=== PATIENT | male | born 1975 | race Hispanic/Latino ===

== ENCOUNTER 2023-09-29 15:36 | Emergency (ER) | payer SELFPAY ==
[2023-09-29 16:04] LABS: Appearance Urine UA CLEAR; Bilirubin Urine UA NEGATIVE (NEGATIVE); Color Urine UA YELLOW; Glucose Urine UA NEGATIVE (Negative); Ketones Urine UA NEGATIVE (NEGATIVE); Leukocyte Esterase Urine UA NEGATIVE (NEGATIVE); Nitrite Urine UA NEGATIVE (Negative); Occult Blood Urine UA NEGATIVE (Negative); Protein Urine UA NEGATIVE (Negative); Specific Gravity Urine UA 1.025 (1.000-1.035); Urobilinogen Urine UA 0.2 E.U./dL (0.2); pH Urine UA 6.5 (4.5-8.0)
[2023-09-29 16:06] VITALS: BP 163/95; PULSE 75; RESP 18; TEMP 36.8; O2SAT 99; BMI 27.8
[2023-09-29 16:15] LABS: Bacteria Urine None Seen; RBC Urine None Seen (0-5/HPF); WBC Urine None Seen (0-5/HPF)
[2023-09-29 16:16] LABS: Squamous Epithelial Cell Urine None Seen (0-5/HPF)
[2023-09-29 16:19] LABS: Culture Indicated Urine Cult Not Indicated
--- NOTE | 2023-09-29 17:59 | ED.SKABFB ---
HPI - Skin/Abscess/Foreign Bdy <Danelle Ca PA-C - Last Filed: 09/29/23 19:40> General Chief complaint: Skin/Abscess/Foreign Body Stated complaint: Pain in genitalia and groin Time Seen by Provider: 09/29/23 17:50 Source: patient Mode of arrival: Ambulatory Limitations: no limitations History of Present Illness HPI narrative: Patient is a 48-year-old male presenting for evaluation of a hemorrhoid in his rectal area which he noticed the last 3 weeks. He states that this occurred after a bout of diarrhea occurring 3 weeks ago which has since resolved.. He states that he is noticed some bright red blood on toilet paper when wiping, but nothing that fills the bowl. He states that it is uncomfortable and somewhat itchy. Reports he had this about 10 years ago and it resolved with treatment, but he can not remember with the treatment was. He is so far been attempting to use [id number] treatments. He denies any abdominal pain no fever or nausea or vomiting. Related Data Home Medications Medication Instructions Recorded Confirmed ibuprofen 200 mg tablet (Advil) 400 mg PO BID ##0 11/27/11 Previous Rx's Medication Instructions Recorded lidocaine 3 %-hydrocortisone 0.5 % 1 applic topical BID 1 week #28.3 09/29/23 topical cream grams Allergies Allergy/AdvReac Type Severity Reaction Status Date / Time Penicillins Allergy Hives Verified 09/29/23 16:14 Review of Systems <Danelle Ca PA-C - Last Filed: 09/29/23 19:40> Review of Systems Narrative: See HPI Patient History <Danelle Ca PA-C - Last Filed: 09/29/23 19:40> Social History Smoking Status: Never smoker Smoking Status: Never smoker alcohol intake frequency: a few times a month Substance Use Type: does not use Exam <Danelle Ca PA-C - Last Filed: 09/29/23 19:40> Initial Vital Signs Initial Vital Signs: Vital Signs Temperature 98.3 F 09/29/23 16:06 Pulse Rate 75 09/29/23 16:06 Respiratory Rate 18 09/29/23 16:06 Blood Pressure 163/95 H 09/29/23 16:06 Pulse Oximetry 99 09/29/23 16:06 Oxygen Delivery Method Room Air 09/29/23 16:06 GENERAL: 48 year old patient appears stated age. Well-developed patient, in no acute distress. HEAD: Atraumatic. Normocephalic. EYES: Pupils equal round No scleral icterus. No injection or drainage. NECK: Trachea midline, supple RESPIRATORY: Speaking comfortably normal tone of voice without any increased work of breathing. 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 NEURO: AOx3. SKIN: No rash or erythema of visible areas <DO Sanjeev Isidro Last Filed: 10/01/23 18:00> Initial Vital Signs Initial Vital Signs: Vital Signs Temperature 98.3 F 09/29/23 16:06 Pulse Rate 75 09/29/23 16:06 Respiratory Rate 18 09/29/23 16:06 Blood Pressure 163/95 H 09/29/23 16:06 Pulse Oximetry 99 09/29/23 16:06 Oxygen Delivery Method Room Air 09/29/23 16:06 Course <Danelle Ca PA-C - Last Filed: 09/29/23 19:40> Orders Ordered: ED Orders 09/29/23 15:56 Urinalysis and Microscopic Stat Vital Signs Vital signs: Vital Signs - 8 hr 09/29/23 16:06 Temperature 98.3 F Pulse Rate 75 Respiratory Rate 18 Blood Pressure 163/95 H Pulse Oximetry 99 Oxygen Delivery Method Room Air <DO Sanjeev Isidro Last Filed: 10/01/23 18:00> Orders Ordered: ED Orders 09/29/23 15:56 Urinalysis and Microscopic Stat Vital Signs Vital signs: Vital Signs - 8 hr 09/29/23 16:06 Temperature 98.3 F Pulse Rate 75 Respiratory Rate 18 Blood Pressure 163/95 H Pulse Oximetry 99 Oxygen Delivery Method Room Air MDM - Skin/Abscess/Foreign Bdy <FAY Castillo Last Filed: 09/29/23 19:40> Lab Data Labs: Lab Results 09/29/23 Range/Units 15:56 Urine Color Yellow Urine Appearance Clear Urine pH 6.5 (4.5-8.0) Ur Specific [place] 1.025 (1.000-1.035) Urine Protein Negative (Negative) Urine Glucose (UA) Negative (Negative) g/dL Urine Ketones Negative (NEGATIVE) Urine Occult Blood Negative (Negative) Urine Nitrate Negative (Negative) Urine Bilirubin Negative (NEGATIVE) Urine Urobilinogen 0.2 (0.2) E.U./dL Ur Leukocyte Esterase Negative (NEGATIVE) Urine RBC None seen (0-5/HPF) Urine WBC None seen (0-5/HPF) Ur Squamous Epith Cells None seen (0-5/HPF) Urine Bacteria None seen (None) Ur Culture Indicated? Cult not indicated MDM Narrative Medical decision making narrative: Patient's symptoms are consistent with hemorrhoid. Hemorrhoid visualized on exam. Patient's description is consistent with an external hemorrhoid, he is no complaint of abdominal pain. Recommend treatment I discussed in discharge instructions with Sitz bath, topical lidocaine hydrocortisone treatment for 1 week as well as steps to make bowel movements easier such as stool softeners and increase fiber in diet. Recommend follow up the primary care provider if symptoms are not improving despite conservative management. Patient is agreeable with plan of care and verbalizes understanding. Findings and discharge diagnosis discussed with patient/family followed by verbalization of understanding Return precautions discussed with patient/family whom verbalize understanding of diagnosis and plan <Parviz Dasilva, DO - Last Filed: 10/01/23 18:00> Lab Data Labs: Lab Results 09/29/23 Range/Units 15:56 Urine Color Yellow Urine Appearance Clear Urine pH 6.5 (4.5-8.0) Ur Specific [place] 1.025 (1.000-1.035) Urine Protein Negative (Negative) Urine Glucose (UA) Negative (Negative) g/dL Urine Ketones Negative (NEGATIVE) Urine Occult Blood Negative (Negative) Urine Nitrate Negative (Negative) Urine Bilirubin Negative (NEGATIVE) Urine Urobilinogen 0.2 (0.2) E.U./dL Ur Leukocyte Esterase Negative (NEGATIVE) Urine RBC None seen (0-5/HPF) Urine WBC None seen (0-5/HPF) Ur Squamous Epith Cells None seen (0-5/HPF) Urine Bacteria None seen (None) Ur Culture Indicated? Cult not indicated Discharge Plan Departure Patient Disposition: Home Clinical Impression: Hemorrhoid Qualifiers: Hemorrhoid type: unspecified Qualified Code(s): K64.9 - Unspecified hemorrhoids Activity Restrictions/Additional Instructions: Thank you for coming in today for your care. You were diagnosed with a hemorrhoid. I recommend treatment to soften stools with use of a stool softener such as docusate sodium, increase water and increase fiber in diet. To help avoid worsening of hemorrhoid today, recommend avoiding sitting on the toilet for long periods of time. I suggest use of a Sitz bath 2 or 3 times a day with warm water. This can help reduce inflammation. Additionally, you may use lidocaine hydrocortisone cream for up to 1 week. These can help shrink the hemorrhoid. If it is still present after 6 weeks despite conservative management, recommend follow up with primary care provider or specialist to discuss removal. Prescriptions: New lidocaine HCl-hydrocortison ac 3-0.5 % cream 1 applic topical BID 7 Days Qty: 28.3 0RF No Action ibuprofen [Advil] 200 MG tablet 400 mg PO BID Qty: 0 Referrals: Parviz Guidry MD [Primary Care Provider] - Stand Alone Forms: Patient Portal/API ED Sign-out <Parviz Dasilva DO - Last Filed: 10/01/23 18:00> Cosign ED Attending Cosignature Attestation: Dr Dasilva Co-Sign Statement: I was available for consultation during this patient's emergency department visit. This chart is signed by myself for administrative purposes only. I did not have direct contact with this patient during this visit. They were seen independently by the APC.
== END 2023-09-29 18:09 | disposition home or self-care (01) ==
PROVIDERS: Emergency Provider Physician Assistant; Family Provider Specialist; PCP Specialist
DX: K64.9 Unspecified hemorrhoids (principal)
CPT/HCPCS: 81001; 99281; 99282

== ENCOUNTER → 2025-09-14 07:58 | Outpatient (CLI) | payer SELFPAY ==
--- NOTE | 2025-09-14 08:02 | DI.NM.S_ITS ---
PROCEDURE: NM EXERCISE TREADMILL NON NUC COMPARISON: None. INDICATIONS: Other chest pain FINDINGS: The patient exercised for 9 minutes and 33 seconds, reaching 96% of maximum predicted heart rate. 10.1METs, DHARA +9%. Appropriate BP response to exercise. No diagnostic ST changes, no angina, and no ectopy during exercise or recovery. IMPRESSION: Low risk, normal treadmill ECG only stress test from inducible ischemia standpoint. Slightly reduced exercise capacity (10.1METs, DHARA +9%). Dictated by: Sara Owens MD on 09/14/2025 at 16:49 Approved by: Sara Owens MD on 09/14/2025 at 16:51
== END ==
PROVIDERS: Family Provider Specialist; PCP Specialist; Referring Provider Family Medicine; Visit Provider Family Medicine
DX: R07.89 Other chest pain (principal)
CPT/HCPCS: 93017